=== PATIENT | male | born 2005 | race Caucasian/White ===

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

== ENCOUNTER 2024-04-07 11:57 | Emergency (ER) | payer OTHER, SELFPAY ==
[2024-04-07 12:11] VITALS: BP 117/56; PULSE 72; RESP 16; TEMP 36.6; O2SAT 99; BMI 26.5
--- NOTE | 2024-04-07 12:16 | DI.RAD.S_ITS ---
PROCEDURE: XR ANKLE LT MIN 3V INDICATIONS: rolled ankle TECHNIQUE: 3 views of the ankle were acquired. COMPARISON: [facility], CR, XR ANKLE RT MIN 3V, 04/21/2019, 15:22. FINDINGS: Bones: No acute displaced fracture or dislocation. Prominent dorsal osteophyte at the talus. Probable small ossicle adjacent to the cuboid. Soft tissues: No suspicious calcifications. IMPRESSION: No acute displaced fracture or dislocation. If there is high concern for occult injury, consider repeat radiography or cross-sectional imaging. Dictated by: Walter Roblero M.D. on 04/07/2024 at 11:46 Approved by: Walter Roblero M.D. on 04/07/2024 at 11:48
--- NOTE | 2024-04-07 15:29 | ED_ITS ---
HPI - Extremity Injury (Lower) General Chief Complaint: Extremity Injury, Lower Stated Complaint: rolled ankle no weight bearing Time Seen by Provider: 04/07/24 15:29 Source: patient Mode of arrival: Wheelchair History of Present Illness HPI Narrative: 19-year-old male no significant past medical history presents to the ED for evaluation of left ankle pain states that he rolled his ankle yesterday while playing basketball. No trauma no falls, states that he has been having pain therefore decided come into the ED for further evaluation treatment. Denies any other injuries Related Data Home Medications Medication Instructions Recorded Confirmed No Known Home Medications 11/27/18 02/06/20 Allergies Allergy/AdvReac Type Severity Reaction Status Date / Time No Known Drug Allergies Allergy Verified 04/07/24 12:11 Review of Systems Review of Systems Narrative: General: Denies fever, chills, weight loss HEENT: Denies headache, eye drainage, eye irritation, head trauma, sore throat, voice change Cardiovascular: Denies any chest pain, palpitations, shortness of breath, tachycardia Respiratory: Denies any shortness of breath, cough, wheeze, stridor GI/: Denies any abdominal pain, nausea, vomiting, diarrhea, bright red blood per rectum, melanotic stools, urinary frequency, urinary retention, dysuria, hematuria MSK: Positive left ankle pain Skin: Denies any rashes, lesions, discoloration Neuro: Denies any headache, lightheadedness, dizziness, fainting, weakness Psych: Denies SI/HI Patient History Medical History (Updated 04/07/24 @ 15:35 by Stewart Infante DO) Healthy adolescent Social History Smoking Status: Never smoker Smoking Status: Never smoker Exam Narrative Exam Narrative: General: Cooperative, comfortable, well-developed, not in acute distress HEENT: Normocephalic, atraumatic, PERRLA, normal sclera, eyelids normal, Neck: Active full range of motion, atraumatic Chest: Normal to inspection, negative crepitus, no overlying erythema ecchymosis Respiratory: Normal respiratory effort, not in acute respiratory distress, clear to auscultation bilaterally negative cough, wheeze, tachypnea, rhonchi, rales Cardiology: Regular rate rhythm negative gallop, murmur, rubs GI/: Normal to inspection, soft, nonrigid, no tenderness to palpation, exam deferred MSK: Full range of active range of motion of all 4 extremities, mild tenderness to palpation of the left lateral malleolus however neurovascularly intact Skin: No rashes lesions noted Neuro: Alert awake oriented x3, moves all 4 extremities spontaneously, cranial nerves intact, able to answer all questions appropriately follows commands appropriately Psych: Cooperative, negative suicidal or homicidal ideations Initial Vital Signs Initial Vital Signs: Vital Signs Temperature 97.8 F 04/07/24 12:11 Pulse Rate 72 04/07/24 12:11 Respiratory Rate 16 04/07/24 12:11 Blood Pressure 117/56 L 04/07/24 12:11 Pulse Oximetry 99 04/07/24 12:11 Oxygen Delivery Method Room Air 04/07/24 12:11 Course Orders Ordered: ED Orders 04/07/24 12:16 XR ankle LT min 3V Stat Vital Signs Vital signs: Vital Signs - 8 hr 04/07/24 12:11 Temperature 97.8 F Pulse Rate 72 Respiratory Rate 16 Blood Pressure 117/56 L Pulse Oximetry 99 Oxygen Delivery Method Room Air MDM - Extremity Injury (Lower) Differential Diagnosis Differential diagnosis: Likely ankle sprain and strain, ankle fracture and other Imaging Data Extremity x-ray #1: Radiologist's Impression: [place] [address] XRay Report Signed Patient: Saravanan Lopez MR#: [id number] : 2005 Acct:[id number] Age/Sex: 19 / M Date of Service: 04/07/24 Loc: ED Accession Number: [id number] Procedure: XR ankle LT min 3V Ordering Provider: Stewart Infante D.O. PROCEDURE: XR ANKLE LT MIN 3V INDICATIONS: rolled ankle TECHNIQUE: 3 views of the ankle were acquired. [facility] 15:22. FINDINGS: Bones: No acute displaced fracture or dislocation. Prominent dorsal osteophyte at the talus. Probable small ossicle adjacent to the cuboid. Soft tissues: No suspicious calcifications. IMPRESSION: No acute displaced fracture or dislocation. If there is high concern for occult injury, consider repeat radiography or cross-sectional imaging. [facility] Narrative Medical decision making narrative: 19-year-old male no significant past medical history presents for evaluation of pain to the left ankle, states that he rolled it after he stepped on his father's foot playing basketball yesterday. States he has had pain since then, x-ray unremarkable for any acute fractures, neurovascularly intact, patient was sent home with ankle stirrup instructed follow up with PCP and orthopedic surgery in outpatient setting, he verbalized understanding of this and agrees to being discharged home with outpatient follow up Discharge Plan Departure Patient Disposition: Home Clinical Impression: Ankle sprain Activity Restrictions/Additional Instructions: Please read the discharge instructions sheet carefully and bring all papers to all doctor follow-up visits, as it may contain information that your doctor may want to see. Disease processes change and evolve, if your symptoms worsen or if you develop any new symptoms that are concerning to you please return for evaluation. Your evaluation today does not show any evidence of any life-threatening/serious illnesses requiring admission to the hospital or surgery. Please follow-up with your doctor for re-evaluation in approximately 1 day. Seek immediate medical attention for any worrisome symptoms. *If you do not have a primary care provider please contact the [facility] Resource line at [phone]. They will ask some questions about your medical history and help get you set up with a doctor in the community. Prescriptions: No Action No Known Home Medications Referrals: Ramya Caputo MD [Primary Care Provider] - Stand Alone Forms: Patient Portal/API/Survey
== END 2024-04-07 16:07 | disposition home or self-care (01) ==
PROVIDERS: Emergency Provider Student in an Organized Health Care Education/Training Program; PCP Pediatrics
DX: S93.402A Sprain of unspecified ligament of left ankle, initial encounter (principal); X50.1XXA Overexertion from prolonged static or awkward postures, initial encounter; Y93.67 Activity, basketball
CPT/HCPCS: 73610; 99283